=== PATIENT | female | born 1945 | race Caucasian/White ===

== ENCOUNTER 2023-09-11 07:30 | Outpatient (CLI) | payer MEDICARE | END 2023-09-11 07:31 | disposition home or self-care (01) | LOC: MADULT 07:30 | PROVIDERS: ATTEND Specialist | DX: K75.4 Autoimmune hepatitis (principal); K51.90 Ulcerative colitis, unspecified, without complications; R93.2 Abnormal findings on diagnostic imaging of liver and biliary tract | CPT/HCPCS: 76700 ==

== ENCOUNTER 2024-01-20 12:02 | Emergency (ER) | payer MEDICARE | END 2024-01-20 13:23 | disposition home or self-care (01) | LOC: MADERS 12:02 | DX: S52.571A Other intraarticular fracture of lower end of right radius, initial encounter for closed fracture (principal); I10 Essential (primary) hypertension; W18.30XA Fall on same level, unspecified, initial encounter ==